=== PATIENT | male | born 1950 | race Caucasian/White ===

== ENCOUNTER 2021-05-28 09:57 | Observation (INO) | payer OTHER, SELFPAY ==
--- NOTE | ~2021-05-28 | MR_ITS ---
EXAMINATION: MR brain/brain stem wo/w con EXAM DATE: 05/29/2021 07:19 INDICATION: Diplopia. TECHNIQUE: Magnetic resonance imaging (MRI) of the brain/brain stem obtained without contrast. Sagit siobhan T1, axial diffusion, gradient echo (T2*), T1, T2, FLAIR sequences obtained. Patient was then inj ected with 20 cc intravenous Multihance contrast. Axial and coronal postcontrast T1 weighted sequence s obtained. Correlation is made to CTA brain carotid from 05/28. FINDINGS: There is punctate acute infarction in the left thalamus. Small old bilateral cerebellar inf arctions. There are no areas of restricted diffusion to suggest acute infarction. There is no acute hemorrhage seen on the T2*, a hemosiderin sensitive sequence. No intraparenchymal brain mass lesion. There is mild periventricular and subcortical T2/FLAIR signal hyperintensity, nonspecific but probab ly related to small vessel ischemic disease (microangiopathy). There is moderate prominence of the sulci and ventricles related to cerebral atrophy. There are no extra-axial collections. Flow voids are seen in the cerebral arteries on the T2-weighted sequences consistent with their expected patenc y. The orbits are unremarkable. Soft tissue is unremarkable. There are no areas of abnormal enhanc ement on the postcontrast images. IMPRESSION: 1. Punctate acute left thalamic lacunar infarction. 2. Chronic age related findings. 3. Old punctate cerebellar infarctions. Reviewed, dictated and finalized at location B.
--- NOTE | ~2021-05-28 | US_ITS ---
EXAMINATION: US carotid duplex BI DATE: 05/29/2021 07:38 INDICATION: Diplopia TECHNIQUE: Grayscale, color Doppler, and pulsed Doppler images of the cervical carotid arteries were obtained. The degree of vessel stenosis is placed in one of the following categories: normal, <50%, 5 0-69%, >=70% but less than near-occlusion, near-occlusion, or total occlusion. Note that percent sten osis relative to normal distal artery lumen diameter is indirectly measured from velocity measurement s as described by Cali, et al. Radiology 2003; 229:340-346. COMPARISON: None. FINDINGS: RIGHT: The right common carotid artery (CCA) peak systolic velocity (PSV) is 60 cm/s. The right internal car otid artery (ICA) PSV is 67 cm/s. The right ICA end-diastolic velocity (EDV) is 29 cm/s. The right IC A/CCA PSV ratio is 1.1. Grayscale and color Doppler images yield an estimate of <50% diameter reducti on from minimal plaque in the ICA. The external carotid artery (ECA) PSV is 85 cm/s. There is antegra de flow in the right vertebral artery. LEFT: The left CCA PSV is 104 cm/s. The left ICA PSV is 87 cm/s. The left ICA EDV is 18 cm/s. The left ICA/ CCA PSV ratio is 0.8. Grayscale and color Doppler images yield an estimate of <50% diameter reduction from plaque in the ICA. The ECA PSV is 84 cm/s. There is antegrade flow in the left vertebral artery . IMPRESSION: 1. <50% stenosis in the right internal carotid artery. 2. <50% stenosis in the left internal carotid artery. Reviewed, dictated and finalized at location A.
--- NOTE | ~2021-05-28 | XR_ITS ---
EXAMINATION: XR chest 2V DATE: 05/28/2021 10:44 INDICATION: Unsteady gait. Diplopia. TECHNIQUE: frontal and lateral views of the chest were obtained. COMPARISON: None FINDINGS: Suggestion of a couple small calcified nodule in the right lung consistent with old granulomatous dis ease. No other airspace opacities, pulmonary edema, pleural effusion or pneumothorax. The cardiomedia stinal silhouette is within normal limits for AP technique. Thoracic kyphosis with minimal anterior w edging of a few mid thoracic vertebral bodies. IMPRESSION: 1. No acute cardiopulmonary disease. Reviewed, dictated and finalized at location A.
--- NOTE | ~2021-05-28 | CT_ITS ---
EXAMINATION: CTA BRAIN/CAROTID DATE: 05/28/2021 11:46 INDICATION: Diplopia and unsteady gait TECHNIQUE: Computed tomographic angiography (CTA) of the head and neck was performed with 100 mL Omni paque-350 intravenous contrast. Multiplanar reconstructions and maximum intensity projection 3D-recon structions of the carotid arteries and of the intracranial arteries were created by the technologist on a separate workstation. Precontrast CT of the head was also obtained. Automated exposure control and iterative reconstruction technique were employed.The dose-length product was 1862.91 mGy-cm. COMPARISON: None. FINDINGS: Carotid arteries: Aortic arch and the origins of the great vessels demonstrate normal caliber with no dissection or ath erosclerotic plaque. Atherosclerotic plaque at the bilateral carotid bulbs, mild on the left and mini mal on the right with 0% stenosis of the both the left and right carotid bulbs relative to normal dis siobhan artery lumen diameter (NASCET criteria). Left vertebral artery is dominant, also without evident plaque or stenosis. Head: Small old lacunar infarct at the left cerebellar hemisphere. No acute intracranial hemorrhage, acute infarction or abnormal extra axial fluid collection. There is mild scattered white matter hypoattenua tion consistent with chronic small vessel ischemic disease. Symmetric prominence of the sulci consist ent with mild age-appropriate diffuse cerebral volume loss. Ventricles are normal and symmetric. No m ass/mass effect. Mild mucosal thickening at the bilateral ethmoid sinuses. The orbits and mastoid air cells are normal. No abnormally enhancing brain lesions. Intracranial arteries Atherosclerotic plaque without hemodynamically significant stenosis at the bilateral carotid siphons. There is no hemodynamically significant stenosis in the vertebral, basilar and internal carotid gil juancarlos. Left vertebral artery is dominant. There are no aneurysms identified. Both A1 and right P1 seg ments are patent. Patent bilateral posterior communicating arteries which on the left appears to be t he sole supply of the left posterior cerebral artery Cerebral arterial arborization appears symmetric . IMPRESSION: 1. Small amount of atherosclerotic plaque with 0% stenosis of the left and right carotid bulbs relati ve to normal distal artery lumen diameter (NASCET criteria). 2. Normal cerebral CT angiogram with no aneurysm or hemodynamically significant stenosis. 3. Small left cerebellar old lacunar infarct. No acute intracranial process or abnormally enhancing b rain lesions.. 4. Age-related changes including mild diffuse volume loss and mild scattered white matter hypoattenua tion consistent with chronic small vessel ischemic disease. Reviewed, dictated and finalized at location A. IMPRESSION: 1. Small amount of atherosclerotic plaque with 0% stenosis of the left and righ t carotid bulbs relative to normal distal artery lumen diameter (NASCET criteri a). 2. Normal cerebral CT angiogram with no aneurysm or hemodynamically significant stenosis. 3. Small left cerebellar old lacunar infarct. No acute intracranial process or abnormally enhancing brain lesions.. 4. Age-related changes including mild diffuse volume loss and mild scattered wh ite matter hypoattenuation consistent with chronic small vessel ischemic diseas e.
[2021-05-28 09:56] VITALS: BP 175/85; PULSE 87; RESP 19; TEMP 36.3; O2SAT 95
--- NOTE | 2021-05-28 10:00 | ECG_ITS ---
Measurements Intervals [place] Rate: 87 P: 40 MN: 189 QRS: -30 QRSD: 106 T: 43 QT: 417 QTc: 504 Interpretive Statements SINUS RHYTHM SUPRAVENTRICULAR BIGEMINY POSSIBLE LEFT ATRIAL ENLARGEMENT INCOMPLETE RIGHT BUNDLE BRANCH BLOCK DELAYED PRECORDIAL R/S TRANSITION ABNORMAL ECG Electronically Signed On 05-28-2021 19:57:16 CDT by Karel Davis D.O.
--- NOTE | 2021-05-28 10:09 | ED.EYEPROB ---
HPI - Eye Problem General Chief complaint: Eye Problems Stated complaint: blurred vision History of Present Illness HPI Narrative: Patient presents with double vision. Patient ports she woke up this morning with double vision. Reports his double vision resolves when he closes one of his eyes. Reports he sees 2 images diagonal to each other. He denies any headache or blurry vision he denies any focal areas of weakness or numbness. Denies any fevers. Related Data Home Medications Medication Instructions Recorded Confirmed No Home Medications 05/28/21 05/28/21 Allergies Allergy/AdvReac Type Severity Reaction Status Date / Time No Known Allergies Allergy Verified 05/28/21 10:06 Review of Systems Review of Systems: CONSTITUTIONAL: Denies fever, chills, or sweats. EYES: Denies visual changes, redness, or discharge. ENT: Denies rhinorrhea, congestion, sore throat, or otalgia. CARDIOVASCULAR: Denies chest pain, palpitations, or edema. RESPIRATORY: Denies cough or dyspnea. GASTROINTESTINAL: Denies abdominal pain, nausea, vomiting, or diarrhea. GENITOURINARY: Denies dysuria or hematuria. SKIN: Denies rash or itching. MUSCULOSKELETAL: Denies back pain, joint pain, or myalgia. NEUROLOGIC: Denies headache, numbness, dizziness, or weakness. PSYCHIATRIC: Denies anxiety or depression. All systems reviewed & are unremarkable except as noted in HPI and below PMFSH Social History Social History Gender identity (if verbalized by the patient): Male Exam Narrative: GENERAL: Well-appearing, well-nourished, and in no acute distress. HEAD: Normocephalic, atraumatic. EYES: PERRLA and EOMI. ENT: Nares clear, no rhinorrhea or epistaxis. Mucous membranes moist. NECK: Supple. No masses. No JVD CHEST: Clear to auscultation. No respiratory distress. No wheezes rales or rhonchi HEART: Regular rate and rhythm. No murmur heard. Normal peripheral pulses. ABDOMEN: Soft, nontender, nondistended, normal active bowel sounds. EXTREMITIES: Normal range of motion. No edema. SKIN: Warm, dry, no rash. NEURO: Difficulty with upward and downward gaze. At rest left eye appears deviated laterally otherwise cranial nerves II through XII are intact. 5 out of 5 strength in all extremities sensation intact to light touch alert and oriented x3. PSYCH: Normal mood and affect. Course Vital Signs Vital signs: Vital Signs Temperature 36.3 C L 05/28/21 09:56 Pulse Rate 87 05/28/21 09:56 Respiratory Rate 19 05/28/21 09:56 Blood Pressure 175/85 H 05/28/21 09:56 Pulse Oximetry 95 05/28/21 09:56 Temperature 36.3 C L 05/28/21 09:56 Pulse Rate 81 05/28/21 12:50 Respiratory Rate 18 05/28/21 12:50 Blood Pressure 133/77 05/28/21 12:50 Pulse Oximetry 96 05/28/21 12:50 MDM - Eye Problem MDM Narrative Medical decision making narrative: Patient done with an ocular diplopia. Patient overall looks clinically well exam is with difficulty with extraocular movements but no other focal neurological deficits. Labs and imaging obtained and were clinically unremarkable for acute process. Patient last known normal was around 2130 last night before he went to bed is not a candidate for any aggressive neurological intervention Patient has mild symptoms. Case discussed with neurology the recommendation for admit and further evaluation utilizing MRI. Admitted to the hospitalist team for further management. Patient's neurological exam remained stable throughout his ER stay Lab Data Result diagrams: 05/28/21 10:34 05/28/21 10:34 Labs: Lab Results 05/28/21 05/28/21 05/28/21 Range/Units 10:34 10:34 10:34 WBC 7.8 (4.5-10.0) K/mm3 RBC 4.98 (4.6-6.20) M/mm3 Hgb 15.0 (14.0-18.0) g/dL Hct 46.4 (42.0-52.0) % MCV 93.2 (80-100) fl MCH 30.1 (26-34) pg MCHC 32.3 (32-36) g/dl RDW 14.1 (11.5-14.5) % Plt Count 187 (150-3
[2021-05-28] MEDS: SODIUM CHLORIDE 0.9% IV 1,000 ML 999 ML IV CONT (10:11)
[2021-05-28 10:43] LABS: Basophils Absolute Auto 0.1 K/mm3 (0.0-0.1); Basophils Percent Auto 0.6 % (0.2-1.2); Eosinophils Absolute Auto 0.2 K/mm3 (0-0.3); Eosinophils Percent Auto 2.1 % (0-4.4); Hematocrit 46.4 % (42.0-52.0); Immature Granulocyte Absolute 0.06 K/mm3 (0.00-0.031); Immature Granulocyte Percent A 0.8 % (0-0.5); Lymphocytes Absolute Auto 2.26 K/mm3 (0.9-3.2); Mean Corpuscular HGB Conc 32.3 g/dl (32-36); Mean Corpuscular Hemoglobin 30.1 pg (26-34); Mean Corpuscular Volume 93.2 fl (80-100); Mean Platelet Volume 9.4 fl (7.4-10.4); Monocytes Absolute Auto 0.7 K/mm3 (0.1-0.6); Monocytes Percent Auto 8.7 % (2.6-8.5); Neutrophils Absolute Auto 4.6 K/mm3 (1.3-6.7); Neutrophils Percent Auto 58.8 % (45.5-73.1); Platelet Count Result 187 k/mm3 (150-375); Red Blood Count 4.98 M/mm3 (4.6-6.20); Red Cell Distribution Width 14.1 % (11.5-14.5); White Blood Count 7.8 K/mm3 (4.5-10.0)
[2021-05-28 10:52] LABS: Alanine Aminotransferase 62 U/L (4-50); Albumin Level 4.5 g/dL (3.5-5.1); Alkaline Phosphatase 64 U/L (38-126); Anion Gap 10 mmol/L (8-16); Aspartate Amino Transferase 54 U/L (17-59); Bilirubin,Total 0.7 mg/dL (0.2-1.3); Blood Urea Nitrogen 13 mg/dL (9-20); Calcium 9.1 mg/dL (8.4-10.2); Carbon Dioxide 27 mmol/L (22-30); Chloride 101 mmol/L (98-107); Estimated CRCL calculation 91 ml/min; Estimated Glomerular Filt Rate > 60; Glucose 154 mg/dL (65-110); INR 0.9; Potassium 4.5 mmol/L (3.4-5.0); Prothrombin Time 12.4 Seconds (11.1-14.7); Sodium 138 mmol/L (137-145)
[2021-05-28 10:53] LABS: Partial Thromboplastin Time 27.6 SECONDS (22.3-36.8)
[2021-05-28 11:20] LABS: Free T4 Free Thyroxine 1.05 ng/mL (0.78-2.19)
[2021-05-28 12:21] LABS: Add Urine Microscopic? YES; Appearance Urine Clear (Clear); Bilirubin Urine Negative (Negative); Blood Urine Negative (Negative); Color Urine Yellow (Yellow); Glucose Urine UA Negative (Negative); Ketones Urine Trace mg/dL (Negative); Leukocyte Esterase Ur Negative LEU/UL (Negative); Mucus Urine Rare /lpf; Nitrate Urine Negative (Negative); Protein Urine Negative (Negative); RBC Urine 0-2 /hpf (0-2); Squamous Epithelial Cell Urine Rare /hpf (Few); Urobilinogen Urine Negative mg/dL (<2.0); WBC Urine 0-3 /hpf
[2021-05-28 12:25] LABS: Specific Grav Ur 1.038 (1.001-1.035)
--- NOTE | 2021-05-28 12:46 | PC.NURSE ---
made contact with [facility] about possible transfer to facility. Dr. Villanueva asked me to let the transfer line know that he had talked to Radha (hospitalist) and Dr. Auguste and that we would not need pt to be transferred out.
[2021-05-28 12:50] VITALS: BP 133/77; PULSE 81; RESP 18; O2SAT 96
[2021-05-28] MEDS: ASPIRIN 81 MG CHEWABLE TABLET 324 MG PO (13:48)
[2021-05-28 14:43] VITALS: BP 146/98; PULSE 77; RESP 20; TEMP 35.5; O2SAT 99
--- NOTE | 2021-05-28 14:54 | PM.IMHP ---
H&P: HPI History of Present Illness Date/Time: 05/28/21 14:54 this is a 70-year-old male patient who has no past medical history. The patient takes no medications at home. The patient last known normal was last night. The patient came to the emergency room today with complaints of double vision. Patient woke up with this. The patient has no further weakness. No facial droop being or her dysarthria. The patient is moving extremities without difficulty. Patient denies any other weakness or numbness. The patient denies any fevers chills. A CT of the head and neck was read as1. Small amount of atherosclerotic plaque with 0% stenosis of the left and right carotid bulbs relative to normal distal artery lumen diameter (NASCET criteria). 2. Normal cerebral CT angiogram with no aneurysm or hemodynamically significant stenosis. 3. Small left cerebellar old lacunar infarct. No acute intracranial process or abnormally enhancing brain lesions.. 4. Age-related changes including mild diffuse volume loss and mild scattered white matter hypoattenuation consistent with chronic small vessel ischemic disease. I did order the patient an aspirin. Patient complains of double vision. He also complains of some gait instability. The patient stated that he feels unstable when walking. The patient is being admitted for observation status on the date of service of 05/28/2021 Chief Complaint: Diplopia Review of Systems Review of Systems: All systems reviewed & are unremarkable except as noted in HPI and below Constitutional: Constitutional: Reports as per HPI and Reports no additional constitutional complaints Eyes: Eyes: Reports as per HPI and Reports no additional eye complaints ENT: Reports system reviewed and no additional complaints, except as documented and Reports Normal hearing present Cardiovascular: Cardiovascular: Reports no additional cardiovascular complaints Respiratory: Respiratory: Reports no additional respiratory complaints and Reports no additional respiratory complaints Gastrointestinal: Gastrointestinal: Reports as per HPI and Reports no additional gastrointestinal complaints Musculoskeletal: Musculoskeletal: Reports no additional musculoskeletal complaints Integumentary/Breasts: Skin/Breast: Reports system reviewed and no additional complaints, except as docu and Reports as per HPI Neurologic: Reports system reviewed and no additional complaints, except as documented, Reports as per HPI and Reports Normal hearing present Psychiatric: Psychiatric: Reports no additional psychiatric complaints and Reports as per HPI Endocrine: Endocrine: Reports no additional endocrine complaints Hematologic/Lymphatic: Hematologic/Lymphatic: Reports no additional hematologic/lymphatic complaints Allergic/Immunologic: Allergic/Immunologic: Reports no additional allergic/immunologic complaints [facility] Past Medical History Medical History (Updated 05/28/21 @ 15:02 by Radha Maldonado NP) History of CVA (cerebrovascular accident) old infarction from ct scan Surgical History Surgical History (Updated 05/28/21 @ 15:02 by Radha Maldonado NP) No pertinent past surgical history Family History Family History (Updated 05/28/21 @ 15:03 by Radha Maldonado NP) Father Lymphoma Social History Social History (Updated 05/28/21 @ 15:09 by Radha Maldonado NP) Social History: The patient is and lives with . The is the durable power associate attorney for health care and the patientis a full code. the patient has 3 children. 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 Lifelong non smoker no alcohol marijuana or illicit drugs. Smoking status: Smoker, status unknown Alcohol intake: never Substance use: never Gender identity (if verbalized by the patient): Male Meds Home Medications and Allergies Home Medications Medication Instructions Recorded Confirmed Type No Home Medications 05/28/21 05/28/21 History Allergies
--- NOTE | 2021-05-28 15:31 | ADMGEN ---
This patient, Rajeev Pate, was admitted to Medical Room 342-01. Patient/family oriented to hospital policies and general routines including ID bracelet, bed and alarms, visiting hours, pain management, procedures, bathroom and other care routines, personal items, smoking policy, room service/diet, and visiting hours. Information on how to activate the Rapid Response Team has been discussed. Patient/Family are encouraged to report perceived risks to care and to ask questions if they do not understand what they are told or what they should do.
[2021-05-28 19:51] VITALS: BP 144/72; PULSE 42; RESP 18; TEMP 36.3; O2SAT 97; BMI 40.0
[2021-05-28 20:00] VITALS: PULSE 81
[2021-05-28 20:05] VITALS: PULSE 72
[2021-05-29] VITALS (7 sets, daily range): BP systolic 125–137; BP diastolic 74–78; PULSE 66–82; RESP 18–20; TEMP 35.7–36.1; O2SAT 96–98
--- NOTE | 2021-05-29 | ECHO_ITS ---
Patient Info Name: Rajeev Pate Age: 70 years : 1950 Gender: Male Ht: 71 in Wt: 266 lbs BSA: 2.50 m2 HR: 80 bpm BP: 137 / 78 mmHg Heart Rhythm: Sinus Rhythm Technical Quality: Fair Exam Date: 05/29/2021 11:06 AM Exam Location: [facility] Patient Status: Inpatient Admit Date: 05/28/2021 Staff Ordering Physician: Radha Maldonado NP Facilities Clerk: Zenia Stapleton RDCS Attending Provider: Kathryn Robison MD Referring Physician: Joel BECK; Exam Type: CA echo dop bubble study w con Study Info Indications H53.2 - Diplopia Complete two-dimentional, color flow and Doppler transthoracic echocardiogram is performed with agitated saline and with contrast to opacify the left ventricle and to improve the delineation of the left ventricle endocardial borders. Contrast/Agitated Saline Contrast/Ag. Saline: Agitated Saline Amount: 30.00 ml Existing IV Access: Yes IV Access Condition: patent with no signs of infiltration Contrast/Ag. Saline: Definity Amount: 1.00 ml Existing IV Access: Yes IV Access Condition: patent with no signs of infiltration Summary 1. Definity contrast injected to improve visualization. 2. Left ventricular systolic function is normal, estimated at 60-65%. 3. Left ventricular chamber dimension is normal. 4. No significant valvular disease. 5. Agitated saline contrast injection does not show any intracardiac shunt. Left Ventricle Left ventricular chamber dimension is normal. Left ventricular systolic function is normal, estimated at 60-65%. The left ventricular diastolic function is grade I diastolic dysfunction. Definity contrast injected to improve visualization. Right Ventricle Right ventricular chamber dimension is normal. Left Atria Left atrial chamber dimension is mildly enlarged. Right Atria Right atrial chamber dimension is normal. Atrial Septum Intact interatrial septum visualized by agitated saline imaging. Aortic Valve The aortic valve is normal. Pulmonic Valve The pulmonic valve is not well visualized. Mitral Valve The mitral valve has normal leaflets. The mitral valve annulus is mildly calcified. Tricuspid Valve The tricuspid valve leaflets are normal. Pericardium/Pleural The pericardium appears normal. Aorta The aortic root size at the sinus of Valsalva is normal. Left Ventricular Outflow Tract Name Value Normal LVOT 2D LVOT Diameter 2.0 cm LVOT Doppler LVOT Peak Gradient 4 mmHg LVOT Mean Gradient 2 mmHg LVOT VTI 20 cm LVOT VTI/AV VTI Ratio 0.9 LVOT Stroke Volume 62 ml LVOT CO 4.8 l/min LVOT CI 1.9 l/min/m2 Pulmonic Valve Name Value Normal
[2021-05-29 05:47] LABS: Basophils Percent Auto 0.6 % (0.2-1.2); Eosinophils Absolute Auto 0.2 K/mm3 (0-0.3); Eosinophils Percent Auto 2.9 % (0-4.4); Hemoglobin 13.5 g/dL (14.0-18.0); Immature Granulocyte Absolute 0.06 K/mm3 (0.00-0.031); Immature Granulocyte Percent A 0.9 % (0-0.5); Lymphocytes Absolute Auto 2.07 K/mm3 (0.9-3.2); Lymphocytes Percent Auto 30.4 % (18.3-44.2); Mean Corpuscular HGB Conc 32.1 g/dl (32-36); Mean Corpuscular Hemoglobin 30.3 pg (26-34); Mean Corpuscular Volume 94.4 fl (80-100); Mean Platelet Volume 9.8 fl (7.4-10.4); Monocytes Absolute Auto 0.6 K/mm3 (0.1-0.6); Neutrophils Absolute Auto 3.8 K/mm3 (1.3-6.7); Neutrophils Percent Auto 56.2 % (45.5-73.1); Platelet Count Result 159 k/mm3 (150-375); Red Blood Count 4.45 M/mm3 (4.6-6.20); Red Cell Distribution Width 14.1 % (11.5-14.5); White Blood Count 6.8 K/mm3 (4.5-10.0)
[2021-05-29 05:57] LABS: Alanine Aminotransferase 46 U/L (4-50); Albumin Level 3.7 g/dL (3.5-5.1); Alkaline Phosphatase 49 U/L (38-126); Anion Gap 6 mmol/L (8-16); Aspartate Amino Transferase 39 U/L (17-59); Bilirubin,Total 0.3 mg/dL (0.2-1.3); Blood Urea Nitrogen 13 mg/dL (9-20); Calcium 8.3 mg/dL (8.4-10.2); Carbon Dioxide 27 mmol/L (22-30); Chloride 103 mmol/L (98-107); Estimated CRCL calculation 106 ml/min; Estimated Glomerular Filt Rate > 60; Glucose 148 mg/dL (65-110); Magnesium 2.2 mg/dL (1.6-2.3); Potassium 3.9 mmol/L (3.4-5.0); Sodium 136 mmol/L (137-145)
[2021-05-29] MEDS: ASPIRIN 325 MG ENTERIC TABLET PO (08:48)
--- NOTE | 2021-05-29 10:27 | WPDNEURCNPN ---
Assessment and Plan Additional Plan intermittent double vision with negative MRI of the brain without evidence of brainstem involvement and also with no evidence of ptosis or any other focal motor deficit to consider the possibility of myasthenia symptomatology could be related to the mono cranial nerve partial dysfunction even though patient is not diabetic but that is the most likely etiology general treatment will be continued as such will be followed in the office in 3 months Consult date: 05/29/21 Time Seen: 09:45 HPI: Rajeev Pate is a 70 year old male has been admitted to the hospital with the complaints of double vision patient woke up with this particular complaint in the morning but gave no history of associated weakness of numbness of 1 side or other side and also speech was normal initial evaluation in the emergency room included CTA which was negative and she was documented to have small left cerebellar old lacunar infarct there is no history of smoking or drinking Review of Systems Review of Systems: All systems reviewed & are unremarkable except as noted in HPI and below PMFSH Past Medical History Medical History History of CVA (cerebrovascular accident) old infarction from ct scan Surgical History Surgical History No pertinent past surgical history Family History Family History Father Lymphoma Social History Social History Social History: The patient is and lives with . The is the durable power assistant attorney general for health care and the patientis a full code. the patient has 3 children. Patient is retired from retail music. Lifelong non smoker no alcohol marijuana or illicit drugs. Smoking status: Never smoker Alcohol intake: never Substance use: never Gender identity (if verbalized by the patient): Male Spiritual care concerns: No Meds Home Medications and Allergies Home Medications Medication Instructions Recorded Confirmed Type No Home Medications 05/28/21 05/28/21 History Allergies Allergy/AdvReac Type Severity Reaction Status Date / Time No Known Allergies Allergy Verified 05/28/21 17:40 Vital Signs Vital Signs - 24 hr 05/28/21 12:50 05/28/21 14:43 05/28/21 19:51 Temperature 35.5 C L 36.3 C L Pulse Rate 81 77 42 L Respiratory Rate 18 20 18 Blood Pressure 133/77 146/98 H 144/72 H Pulse Oximetry 96 99 97 05/28/21 20:00 05/28/21 20:05 05/29/21 00:00 Temperature Pulse Rate 81 72 82 Respiratory Rate Blood Pressure Pulse Oximetry 05/29/21 04:00 05/29/21 05:53 Temperature 36.1 C L Pulse Rate 78 75 Respiratory Rate 18 Blood Pressure 137/78 Pulse Oximetry 98 Exam Const: General: cooperative, comfortable, no acute distress, alert and awake Nutritional Appearance: obese Orientation/consciousness: oriented to person, oriented to place and oriented to time Limitations: no limitations HENMT: Head: normal to inspection and normocephalic Ears: hearing grossly normal bilaterally General nose exam: Normal external nose present Face and sinus: normal facial exam Mouth: Yes Normal oral and palatal mucosa present Eyes: General: appearance normal, both eyes and all related structures Visual Robbins: normal visual robbins by confrontation Alignment and Position: alignment normal Periorbital: periorbital findings normal Eyelids: eyelids normal Conjunctivae: conjunctivae normal Sclera: sclerae normal Cornea: corneas normal Pupils: Equal, round and reactive pupils present EOM: EOMs intact bilaterally Neck: Neck: normal visual inspection, full ROM and no lymphadenopathy Resp: Effort & Inspection: normal respiratory effort and able to speak in complete sentences Auscultation: clear to auscultation bilaterally Cardio: Jugular veno
[2021-05-29] MEDS: PERFLUTREN LIPID MICROSPHERES 1.5 ML VIAL DILUTED TO 10 ML TOTAL VOLUME IV PUSH (11:25)
--- NOTE | 2021-05-29 13:01 | PM.DS ---
DS: Admitting Diagnosis Admitting Diagnosis Acute CVA DS: Discharge Diagnosis Discharge Diagnosis (1) CVA (cerebral vascular accident): Code(s): I63.9 - Cerebral infarction, unspecified Status: Acute Assessment and Plan: Dr. Rangel has been consulted. carotid Dopplers negative. bubble study echo showed EF of 60-65% with no seen shunt. MRI-Punctate acute left thalamic lacunar infarction neuro checks. PT OT evaluation. Speech is clear and swallowing is within normal limits. Vision is corrected with covering 1 eye. Will Discharge on aspirin, Plavix, and atorvastatin Patient will need to follow up with DR. OCHOA in 3 Months (2) Diplopia: Code(s): H53.2 - Diplopia Status: Acute Assessment and Plan: See above DS: Summary Hospital Course Reason for hospitalization: Date of service 05/29/2021 at 11:45 a.m. Hospital Course: Patient is a 70-year-old male who came in through the ED with complaints of generalized weakness and blurred vision. Patient states that his vision has not got any better however he does not feel as lightheaded as he did yesterday and he feels better overall. He also stated that he talk to the neurologist which he felt comfortable with stating that he had no issues with his MRI. MRI did show no acute infarct of the thalamus area in the brain that is very small. It also showed some old infarcts in the same area. Patient will be started on Plavix, aspirin and a statin and will follow-up with neurology in 3 months. Echo was completed and showed an EF of 60 65% with no shunt, carotid Dopplers were negative for stenosis or blockage, head CT showed some older infarcts and age-related changes. Labs were normal today and have been stable throughout the visit. Vital signs are also stable with no need for intervention. Status at Discharge Functional status at discharge: independent ambulation Overall status at discharge: patient is progressing back to baseline Time Spent with Patient Time attestation: Total time spent providing and/or coordinating discharge services: 43 minutes Time spent: Greater than 30 minutes Exam Const: General: cooperative, healthy appearing, comfortable, no acute distress, well developed, alert, awake and Physically active Nutritional Appearance: average body habitus and well nourished Orientation/consciousness: oriented to person, oriented to place, oriented to time and patient oriented x3 Limitations: no limitations HENMT: Head: normal to inspection, No palpable skull fracture present, normocephalic and atraumatic Ears: hearing grossly normal bilaterally and external ears normal General nose exam: Normal external nose present, Normal nares present and No nasal polyps present Eyes: General: appearance normal, both eyes and all related structures Alignment and Position: alignment normal Periorbital: periorbital findings normal Eyelids: eyelids normal Pupils: Equal, round and reactive pupils present EOM: EOMs intact bilaterally Neck: Neck: normal visual inspection, full ROM, no lymphadenopathy, trachea midline and supple Thyroid: thyroid normal Carotids: normal carotid upstroke Lymphatic: no lymphadenopathy noted Chest: Chest palpation & inspection: normal inspection of the chest Resp: Effort & Inspection: normal respiratory effort Auscultation: clear to auscultation bilaterally Percussion: percussion normal Cardio: Palpation: normal PMI Rate: regular rate Rhythm: regular rhythm Heart sounds: S1 normal heart sound present and S2 normal heart sound present Peripheral pulses: Peripheral pulses 2+ throughout GI: Inspection: normal to inspection Auscultation: normal bowel sounds Rectal Exam: deferred Skin: General skin exam: normal color Lesions: no lesions Rashes: no rashes Trauma: no lacerations or abrasions Wounds: no wounds Hair: normal Nails: normal Neuro: General: oriented to person, oriented to place, orien
[2021-05-29] MEDS: CLOPIDOGREL BISULFATE 75 MG TABLET PO (13:57)
[2021-05-29] MEDS: ATORVASTATIN 40 MG TABLET PO (13:58)
== END 2021-05-29 16:25 | disposition home or self-care (01) ==
LOC: ANHED 12:45 → ANH3MED 19:31
PROVIDERS: Nurse Practitioner; Admitting Provider Hospitalist; Emergency Provider Emergency Medicine; PCP Student in an Organized Health Care Education/Training Program; Visit Provider Internal Medicine
DX: I63.9 Cerebral infarction, unspecified (principal); H53.2 Diplopia; Z86.73 Personal history of transient ischemic attack (TIA), and cerebral infarction without residual deficits
CPT/HCPCS: 36415; 70496; 70498; 70553; 71046; 80053; 81001; 83735; 84439; 84443; 85025; 85610; 85730; 93005; 93880; 96360; 96361; 96374; 96375; 97161; 97165; 99285; A9270; A9577; C8929; G0378; J7030; Q9957; Q9967